=== PATIENT | female | born 1960 | race Caucasian/White ===

== ENCOUNTER → 2018-03-22 | Outpatient (CLI) | payer BC, OTHER | LOC: M WUC 13:33 | DX: M25.571 Pain in right ankle and joints of right foot (principal) | CPT/HCPCS: 73630 ==

== ENCOUNTER → 2020-10-09 | Outpatient (REF) | payer OTHER ==
[~2020-10-09] MED LIST: ASPI-527 PO; CALCIUM & VIT D PO; CARD40TA PO; FISHCAP5 PO; GLUCTAB6 PO; NATU400T PO; VICO5TAB OR; VITA-243 PO; [UNRECOGNIZED DRUG - CODE] PO
== END ==
LOC: M LAB REF 16:04
PROVIDERS: ATTEND Physician Assistant
DX: L57.0 Actinic keratosis (principal); I87.2 Venous insufficiency (chronic) (peripheral)

== ENCOUNTER → 2021-10-02 | Outpatient (REF) | payer OTHER ==
[~2021-10-02] MED LIST changes: -GLUCTAB6 PO; +GLUCTAB7 PO
== END ==
LOC: M SFHCDERM 18:50
PROVIDERS: ATTEND Physician Assistant
DX: L82.1 Other seborrheic keratosis (principal)

== ENCOUNTER → 2023-01-08 | Outpatient (CLI) | payer BC, OTHER | LOC: M WUC 11:06 | PROVIDERS: ATTEND Physician Assistant Medical | DX: M19.072 Primary osteoarthritis, left ankle and foot (principal) ==

== ENCOUNTER → 2023-03-03 | Outpatient (CLI) | payer BC, OTHER | LOC: M RAD 07:27 | PROVIDERS: ATTEND Physician Assistant | DX: M25.372 Other instability, left ankle (principal) ==

== ENCOUNTER → 2024-09-01 | Outpatient (REF) | payer BC, OTHER, MEDICARE ==
[2024-09-01 15:58] LABS: PERCENT SATURATION 23.4 % (13.2-45.0)
[2024-09-01 16:00] LABS: FERRITIN 19.9 NG/ML (7.3-270.7)
== END ==
LOC: M LAB REF 14:40
PROVIDERS: ATTEND Internal Medicine
DX: D64.9 Anemia, unspecified (principal)

== ENCOUNTER 2024-11-25 16:19 | Emergency (ER) | payer MEDICARE, OTHER ==
[~2024-11-25] VITALS: Ht 165.1 cm; Wt 68.8 kg
[2024-11-25] MEDS ORDERED: BISO5TAB14 (16:28)
[2024-11-25] MEDS ORDERED: ATIV1TAB10 (16:28)
[2024-11-25] MEDS ORDERED: BUSP5TA (16:28)
[2024-11-25] MEDS: PERCOCET 5MG/325MG TAB PO ONE (18:57)
[2024-11-25] MEDS ORDERED: OXYC1TAB23 PO (20:15)
[2024-11-25 20:31] VITALS: BP 150/81; TEMP 99.7; O2SAT 98
== END 2024-11-25 20:38 | disposition home or self-care (01) ==
LOC: M ED 16:19
DX: S52.615A Nondisplaced fracture of left ulna styloid process, initial encounter for closed fracture (principal); S52.532A Colles' fracture of left radius, initial encounter for closed fracture; W08.XXXA Fall from other furniture, initial encounter; Y92.009 Unspecified place in unspecified non-institutional (private) residence as the place of occurrence of the external cause; Y93.9 Activity, unspecified; Y99.9 Unspecified external cause status; Z79.82 Long term (current) use of aspirin; Z79.899 Other long term (current) drug therapy; Z88.8 Allergy status to other drugs, medicaments and biological substances

== ENCOUNTER → 2025-03-06 | Outpatient (REF) | payer MEDICARE, BC ==
[~2025-03-06] MED LIST changes: +ATIV1TAB10; +BISO5TAB14; +BUSP5TA; +OXYC1TAB23 PO
[2025-03-06 13:56] LABS: IRON (FE) 104.0 UG/DL (50-170); PERCENT SATURATION 34.2 % (13.2-45.0)
== END ==
LOC: M LAB REF 12:53
PROVIDERS: ATTEND Internal Medicine
DX: D64.9 Anemia, unspecified (principal)